=== PATIENT | male | born 1945 | race Two or more races ===

== ENCOUNTER 2016-06-18 23:59 | Inpatient (IN) | payer MEDICARE ==
[~2016-06-18] VITALS: Ht 175.3 cm; Wt 88.0 kg
[2016-06-19 03:30] VITALS: BP 134/69
--- NOTE | 2016-06-19 03:30 | NUR ---
GPS ADMISSION NOTE, RECEIVED PATIENT FROM [facility]. PATIENT ARRIVED ON THIS UNIT AT 0330 VIA WHEEL CHAIR WITH [employer] COORDINATOR VOLUNTEER ESCORT. PATIENT ADMITTED ON A 5150 HOLD FOR DTS. PER HOLD PATIENT WAS AT [facility] WERE HE CONTACTED SECURITY. PATIENT STATED HE FELT HOPELESS AND SUICIDAL AT WHICH POINT HE REQUESTED FOR HELP. THE 5150 WAS REVIEWED AND THE DOCUMENTATION IN THE 5150 HOLD APPEARS TO REFLECT THE PRESENTATION OF THE PATIENT. UPON FACE TO FACE ASSESSMENT PATIENT IS CURRENTLY LYING IN BED AWAKE, HAS COMPLAINT OF BILATERAL KNEE PAIN AT 5 OUT 10 ON THE PAIN SCALE. PATIENT IS TAKING ORAL PAIN MEDICATION FOR THIS PAIN. PATIENT IS DISPLAYING NO S/S OF APPARENT DISTRESS. PATIENT BREATHING IS UNLABORED WITH EQUAL RISE AND FALL OF THE CHEST. PATIENT IS ALERT AND ORIENTATED X 4 ON ROOM AIR. PATIENT ASSISTED WITH TURING AND REPOSITIONING Q2HR AND PRN FOR COMFORT AND CIRCULATION. PATIENT HAS NO NEEDS AT THIS TIME. PATIENT IS NOTED TO BEING WITHDRAWN, DEPRESSED, DISORGANIZED, COOPERATIVE, AND NEEDS REDIRECTION. PATIENT HAS SUICIDE IDEATIONS OF OVERDOSING ON INSULIN AT THIS TIME. PATIENT IS UNDER THE PSYCHIATRIC CARE OF DR. CARDOZA AND THE MEDICAL CARE OF DR LERMA. PATIENT BELONGINGS WERE INVENTORIED AND CHECKED FOR CONTRABAND. ALL CONTRABAND REMOVED AND STORED IN PATIENT HALLWAY LOCKER. PATIENT ADVANCED DIRECTIVES PREFERENCE, IMMUNIZATIONS QUESTIONER, NECESSARY PAPERWORK, AND SKIN ASSESSMENT COMPLETED. PATIENT ORIENTATED TO ROOM, FLOOR, AND STAFF WITH ALL QUESTIONS ANSWERED. PATIENT EDUCATED ON THE USE OF THE CALL BUTT. PATIENT BED SIDE RAILS ARE UP X 2 FOR SAFETY. PATIENT BED IS LOCKED, LOW AND I WILL CONTINUE TO MONITOR THIS PATIENT Q 15 MIN WITH THE HELP OF STAFF TO MAINTAIN SAFETY.
[2016-06-19] MEDS ORDERED: MAG HYDROX/AL HYDROX/SIMETH 30 ML UDC PO PRN (04:30)
[2016-06-19] MEDS ORDERED: TEMAZEPAM 7.5 MG CAPSULE PO PRN (04:30)
[2016-06-19] MEDS ORDERED: MAGNESIUM HYDROXIDE 30 ML UDC PO PRN (04:30)
[2016-06-19] MEDS ORDERED: ACETAMINOPHEN 325 MG TABLET PO PRN (04:30)
[2016-06-19] MEDS ORDERED: LORAZEPAM 0.5 MG TABLET PO PRN (04:30)
[2016-06-19] MEDS ORDERED: CLOP75TA2 PO (04:34)
[2016-06-19] MEDS ORDERED: CARV6.252 PO (04:38)
[2016-06-19] MEDS ORDERED: TRAZ-147 PO (04:49)
[2016-06-19] MEDS ORDERED: HYDR-3895 PO (04:56)
[2016-06-19] MEDS ORDERED: LORA10TA7 PO (04:59)
[2016-06-19] MEDS ORDERED: METH-406 PO (05:01)
[2016-06-19] MEDS ORDERED: VENL75TA4 PO (05:02)
[2016-06-19] MEDS ORDERED: ATOR80TA PO (05:06)
[2016-06-19] MEDS ORDERED: ISOS60TA4 PO (05:09)
[2016-06-19] MEDS ORDERED: RANO500T3 PO (05:11)
[2016-06-19] MEDS ORDERED: GLUC1KIT IJ (05:16)
[2016-06-19] MEDS ORDERED: INSU100V10 SQ (05:19)
[2016-06-19] MEDS ORDERED: NITR0.4T6 SL (05:22)
[2016-06-19] MEDS ORDERED: GUAI600T PO (05:24)
[2016-06-19] MEDS ORDERED: DEXTROSE 50%-WATER 50 ML DISP.SYRIN IV PRN (06:30)
[2016-06-19] MEDS ORDERED: GUAIFENESIN LA 600 MG TABLET.SA PO PRN (07:00)
[2016-06-19] MEDS ORDERED: NITROGLYCERIN 0.4 MG/TAB BOTTLE SL PRN (07:00)
[2016-06-19] MEDS ORDERED: hydrOXYzine PAMOATE 25 MG CAPSULE PO PRN (07:00)
[2016-06-19] MEDS: BLOOD SUGAR DIAGNOSTIC 1 EACH STRIP IN SCH ×4 (07:30→21:12)
[2016-06-19 08:00] VITALS: BP 144/76
[2016-06-19] MEDS: INSULIN DETEMIR 100 UNIT/ML CARTRIDGE SQ SCH ×2 (09:00→17:00)
[2016-06-19] MEDS ORDERED: VENLAFAXINE HCL 75 MG PO SCH (09:00)
[2016-06-19] MEDS: LORATADINE 10 MG TABLET PO SCH (10:13)
[2016-06-19] MEDS: METHOCARBAMOL (750MG) 750 MG TABLET PO SCH ×3 (10:13→17:38)
[2016-06-19] MEDS: CLOPIDOGREL BISULFATE 75 MG TABLET PO SCH (10:13)
[2016-06-19] MEDS: CARVEDILOL 6.25 MG TABLET PO SCH ×2 (10:15→17:38)
[2016-06-19] MEDS: INSULIN REGULAR, HUMAN 100 UNIT/ML 3 ML VIAL SQ PRN ×2 (12:27→21:18)
--- NOTE | 2016-06-19 19:12 | NUR ---
GPS/RN NOTE: PATIENT AWAKE, ALERT, ORIENTED X3, CALM, QUIET, NO ACUTE DISTRESS NOTED.
[2016-06-19 20:03] VITALS: BP 127/61
[2016-06-19] MEDS: TRAZODONE 50 MG TABLET PO PRN (21:12)
--- NOTE | 2016-06-19 21:13 | NUR ---
GPS/RN NOTE: REQUESTING FOR HIS DESYREL 100 MG PO GIVEN FOR SLEEP.
--- NOTE | 2016-06-19 21:18 | NUR ---
GPS/RN NOTE: ACCUCHECK 283 MG//DL, 6 UNITS REGULAR INSULIN SC ADMINISTERED. OFFERED HS SNACKS BUT REFUSED. WILL MONITOR.
[2016-06-20 07:14] LABS: BASOPHILS % (AUTO) 0.7 % (0.0-2.0); EOSINOPHILS # (AUTO) 0.1 /CMM (0.0-0.7); EOSINOPHILS % (AUTO) 1.9 % (0.0-6.0); HEMATOCRIT 36 % (39-51); HEMOGLOBIN 11.9 g/dL (13.5-17.5); LYMPHOCYTES # (AUTO) 1.1 /CMM (0.8-4.8); LYMPHOCYTES % (AUTO) 26.2 % (20.0-44.0); MEAN CORPUSCULAR HEMOGLOBIN 26 PG (26.0-33.0); MEAN CORPUSCULAR HGB CONC 33 g/dl (31.0-36.0); MEAN CORPUSCULAR VOLUME 79 fL (80-96); MONOCYTES # (AUTO) 0.3 /CMM (0.1-1.30); MONOCYTES % (AUTO) 6.2 % (2.0-12.0); NEUTROPHILS # (AUTO) 2.8 /CMM (1.8-8.9); PLATELET COUNT (AUTO) 186 /CMM (150-450); RDW COEFFICIENT OF VARIATION 16.1 (11.5-15.0); RED BLOOD CELL COUNT(AUTO) 4.55 MIL/uL (4.5-6.0); WHITE BLOOD COUNT (AUTO) 4.3 K/uL (4.3-11.0)
[2016-06-20 07:24] LABS: ALBUMIN 2.6 g/dL (3.4-5.0); BILIRUBIN,TOTAL 0.5 mg/dL (0.2-1.0); CALCIUM, SERUM 7.7 mg/dL (8.5-10.1); CREATININE 0.8 mg/dL (0.6-1.3); POTASSIUM 3.5 mmol/L (3.5-5.1); TOTAL PROTEIN, SERUM 5.6 g/dL (6.4-8.2)
[2016-06-20] MEDS: BLOOD SUGAR DIAGNOSTIC 1 EACH STRIP IN SCH ×4 (07:33→21:59)
[2016-06-20] MEDS: INSULIN REGULAR, HUMAN 100 UNIT/ML 3 ML VIAL SQ PRN ×4 (07:34→22:13)
--- NOTE | 2016-06-20 07:34 | NUR ---
[id number]: BLOOD SUGAR IS 200 MG/DL AND GAVE 3 UNITS OF REGULAR INSULIN
[2016-06-20 08:21] VITALS: BP 135/66
[2016-06-20] MEDS: CLOPIDOGREL BISULFATE 75 MG TABLET PO SCH (08:22)
[2016-06-20] MEDS: METHOCARBAMOL (750MG) 750 MG TABLET PO SCH ×3 (08:22→16:37)
[2016-06-20] MEDS: ATORVASTATIN 40 MG TABLET PO SCH (08:23)
[2016-06-20] MEDS: LORATADINE 10 MG TABLET PO SCH (08:23)
[2016-06-20] MEDS: CARVEDILOL 6.25 MG TABLET PO SCH ×2 (08:24→16:38)
[2016-06-20] MEDS: SERTRALINE HCL 50 MG TABLET PO SCH (08:24)
[2016-06-20] MEDS: ISOSORBIDE MONONITRATE (30MG) 30 MG TAB.SR.24H PO SCH (08:24)
[2016-06-20] MEDS: INSULIN DETEMIR 100 UNIT/ML CARTRIDGE SQ SCH ×2 (08:30→16:46)
--- NOTE | 2016-06-20 13:45 | NUR ---
Initial discharge plan: Pt. is a resident at [facility] [address] [place] [address] and per Eunice from admission, pt is able to return upon discharge. LYLY will follow up with Felisa, temporary conservator [phone] and will arrange for safe discharge. Addendum: 06/20/16 at 1541 by LA[place] DESOUZA Disregard this note: The note belongs to another patient.
[2016-06-20 14:47] LABS: IRON, SERUM 32 ug/dl (50-175); TOTAL IRON BINDING CAPACITY 350 ug/dl (250-450)
--- NOTE | 2016-06-20 16:03 | NUR ---
Initial discharge plan; Pt is homeless and needs placement. Pt. does not seem to know whether he wants to be placed in a facility or if he would like to return back to the streets because he wants to go back to [place], [place]. SW will follow up with MD and pt. at a later day to arrange for discharge and discuss plan. SW will help form safe and proper discharge.
[2016-06-20 16:23] VITALS: BP 134/61
[2016-06-20 20:20] VITALS: BP 114/58
[2016-06-20] MEDS: HYDROCODONE/APAP 5/325MG 1 EACH TABLET PO PRN (20:54)
[2016-06-20] MEDS: TRAZODONE 50 MG TABLET PO PRN (21:58)
--- NOTE | 2016-06-21 07:30 | NUR ---
RECEIVED PT. IN AM ALERT AND ORIENTED X3,COOPERATIVE,DEPRESSED.VS STABLE.
[2016-06-21] MEDS: INSULIN REGULAR, HUMAN 100 UNIT/ML 3 ML VIAL SQ PRN ×3 (08:03→17:39)
[2016-06-21] MEDS: INSULIN DETEMIR 100 UNIT/ML CARTRIDGE SQ SCH ×2 (08:07→17:41)
[2016-06-21] MEDS: BLOOD SUGAR DIAGNOSTIC 1 EACH STRIP IN SCH ×4 (08:08→23:02)
[2016-06-21 08:23] VITALS: BP 120/62
[2016-06-21] MEDS: METHOCARBAMOL (750MG) 750 MG TABLET PO SCH ×3 (10:07→17:36)
[2016-06-21] MEDS: LORATADINE 10 MG TABLET PO SCH (10:07)
[2016-06-21] MEDS: CLOPIDOGREL BISULFATE 75 MG TABLET PO SCH (10:07)
[2016-06-21] MEDS: SERTRALINE HCL 50 MG TABLET PO SCH (10:08)
[2016-06-21] MEDS: CARVEDILOL 6.25 MG TABLET PO SCH ×2 (10:08→17:00)
[2016-06-21] MEDS: ATORVASTATIN 40 MG TABLET PO SCH (10:08)
[2016-06-21] MEDS: ISOSORBIDE MONONITRATE (30MG) 30 MG TAB.SR.24H PO SCH (10:09)
[2016-06-21 16:11] VITALS: BP 109/59
--- NOTE | 2016-06-21 18:00 | NUR ---
TAKING MEDS,COMPLIANT.
[2016-06-21 20:41] VITALS: BP 112/60
[2016-06-21] MEDS: TRAZODONE 50 MG TABLET PO PRN (21:14)
[2016-06-21] MEDS: HYDROCODONE/APAP 5/325MG 1 EACH TABLET PO PRN (23:03)
[2016-06-22] MEDS: BLOOD SUGAR DIAGNOSTIC 1 EACH STRIP IN SCH ×4 (07:49→21:19)
[2016-06-22 08:00] VITALS: BP 134/70
[2016-06-22] MEDS: INSULIN REGULAR, HUMAN 100 UNIT/ML 3 ML VIAL SQ PRN ×2 (08:05→12:05)
[2016-06-22] MEDS: METHOCARBAMOL (750MG) 750 MG TABLET PO SCH ×3 (08:19→16:17)
[2016-06-22] MEDS: ATORVASTATIN 40 MG TABLET PO SCH (08:19)
[2016-06-22] MEDS: CLOPIDOGREL BISULFATE 75 MG TABLET PO SCH (08:19)
[2016-06-22] MEDS: CARVEDILOL 6.25 MG TABLET PO SCH ×2 (08:20→16:17)
[2016-06-22] MEDS: LORATADINE 10 MG TABLET PO SCH (08:21)
[2016-06-22] MEDS: ISOSORBIDE MONONITRATE (30MG) 30 MG TAB.SR.24H PO SCH (08:21)
[2016-06-22] MEDS: SERTRALINE HCL 50 MG TABLET PO SCH ×2 (08:22→09:00)
[2016-06-22] MEDS: INSULIN DETEMIR 100 UNIT/ML CARTRIDGE SQ SCH ×2 (08:23→17:00)
--- NOTE | 2016-06-22 09:18 | NUR ---
DR. PACHECO INCREASE THE ZOLOFT TO 75 MG PO, 50 MG OF ZOLOFT GIVEN ALREADY.
[2016-06-22 16:07] VITALS: BP 121/65
--- NOTE | 2016-06-22 17:31 | NUR ---
PT. REFUSED FOR LEVEMIR OF 20 UNITS AT THIS TIME AND SAID HE DOESN'T NEED IT AT THIS TIME.
[2016-06-22 20:00] VITALS: BP 130/59
--- NOTE | 2016-06-22 20:08 | NUR ---
GPS/RN NOTE: AWAKE, ALERT, ORIENTED X3, AMBULATORY. DENIES ANY DISCOMFORT. NO ACUTE DISTRESS NOTED. RESTING IN BED, COMFORTABLE.
[2016-06-22] MEDS: TRAZODONE 50 MG TABLET PO PRN (21:21)
[2016-06-23] MEDS: INSULIN REGULAR, HUMAN 100 UNIT/ML 3 ML VIAL SQ PRN ×4 (00:59→21:40)
[2016-06-23 07:56] VITALS: BP 101/60
[2016-06-23 08:00] VITALS: BP 101/60
[2016-06-23] MEDS: CARVEDILOL 6.25 MG TABLET PO SCH ×2 (08:40→17:57)
[2016-06-23] MEDS: BLOOD SUGAR DIAGNOSTIC 1 EACH STRIP IN SCH ×4 (08:40→21:30)
[2016-06-23] MEDS: ATORVASTATIN 40 MG TABLET PO SCH (08:41)
[2016-06-23] MEDS: SERTRALINE HCL 50 MG TABLET PO SCH (08:41)
[2016-06-23] MEDS: LORATADINE 10 MG TABLET PO SCH (08:41)
[2016-06-23] MEDS: ISOSORBIDE MONONITRATE (30MG) 30 MG TAB.SR.24H PO SCH (08:41)
[2016-06-23] MEDS: METHOCARBAMOL (750MG) 750 MG TABLET PO SCH ×3 (08:41→17:56)
[2016-06-23] MEDS: CLOPIDOGREL BISULFATE 75 MG TABLET PO SCH (08:41)
[2016-06-23] MEDS: INSULIN DETEMIR 100 UNIT/ML CARTRIDGE SQ SCH ×2 (08:43→17:00)
--- NOTE | 2016-06-23 13:46 | NUR ---
Pt was referred and accepted to [facility] [address] [place] [address] per Billy and LATANYA at the facility.
[2016-06-23 16:00] VITALS: BP 117/65
--- NOTE | 2016-06-23 18:50 | NUR ---
GPS/RN ACCUCHECK WITH BS 102 @9864. PT REFUSE DLEVOMIR AND REQUESTED TO CHECK THE BS @1999 AND CONSIDER LEVOMIR ADMINISTRATION AT THAT TIME. WILL ENDORSE TO DINING SERVICE WORKER ACCORDINGLY.
[2016-06-23 20:00] VITALS: BP 125/61
[2016-06-23] MEDS: TRAZODONE 50 MG TABLET PO PRN (21:24)
[2016-06-24 08:00] VITALS: BP 121/62
[2016-06-24] MEDS: ISOSORBIDE MONONITRATE (30MG) 30 MG TAB.SR.24H PO SCH (09:00)
[2016-06-24] MEDS: CARVEDILOL 6.25 MG TABLET PO SCH ×2 (09:00→18:00)
[2016-06-24] MEDS: INSULIN REGULAR, HUMAN 100 UNIT/ML 3 ML VIAL SQ PRN ×4 (09:14→21:44)
[2016-06-24] MEDS: INSULIN DETEMIR 100 UNIT/ML CARTRIDGE SQ SCH ×2 (09:15→18:05)
[2016-06-24] MEDS: METHOCARBAMOL (750MG) 750 MG TABLET PO SCH ×3 (09:16→18:00)
[2016-06-24] MEDS: BLOOD SUGAR DIAGNOSTIC 1 EACH STRIP IN SCH ×4 (09:16→21:35)
[2016-06-24] MEDS: LORATADINE 10 MG TABLET PO SCH (09:17)
[2016-06-24] MEDS: SERTRALINE HCL 50 MG TABLET PO SCH (09:17)
[2016-06-24] MEDS: ATORVASTATIN 40 MG TABLET PO SCH (09:18)
[2016-06-24] MEDS: CLOPIDOGREL BISULFATE 75 MG TABLET PO SCH (09:18)
[2016-06-24 16:16] VITALS: BP 118/64
[2016-06-24 20:00] VITALS: BP 125/64
[2016-06-24] MEDS: TRAZODONE 50 MG TABLET PO PRN (21:34)
[2016-06-25 08:00] VITALS: BP 125/74
[2016-06-25] MEDS: BLOOD SUGAR DIAGNOSTIC 1 EACH STRIP IN SCH ×4 (08:25→22:13)
[2016-06-25] MEDS: INSULIN REGULAR, HUMAN 100 UNIT/ML 3 ML VIAL SQ PRN ×4 (08:26→22:18)
[2016-06-25] MEDS: INSULIN DETEMIR 100 UNIT/ML CARTRIDGE SQ SCH ×2 (08:27→17:07)
[2016-06-25] MEDS: ATORVASTATIN 40 MG TABLET PO SCH (08:29)
[2016-06-25] MEDS: LORATADINE 10 MG TABLET PO SCH (08:29)
[2016-06-25] MEDS: SERTRALINE HCL 50 MG TABLET PO SCH (08:29)
[2016-06-25] MEDS: CARVEDILOL 6.25 MG TABLET PO SCH ×2 (08:30→17:00)
[2016-06-25] MEDS: CLOPIDOGREL BISULFATE 75 MG TABLET PO SCH (08:30)
[2016-06-25] MEDS: METHOCARBAMOL (750MG) 750 MG TABLET PO SCH ×3 (08:30→17:03)
[2016-06-25] MEDS: ISOSORBIDE MONONITRATE (30MG) 30 MG TAB.SR.24H PO SCH (08:31)
[2016-06-25 16:00] VITALS: BP 103/61
[2016-06-25 20:07] VITALS: BP 120/70
[2016-06-25] MEDS: HYDROCODONE/APAP 5/325MG 1 EACH TABLET PO PRN (20:53)
[2016-06-25] MEDS: TRAZODONE 50 MG TABLET PO PRN (21:55)
[2016-06-26 08:00] VITALS: BP 132/63
[2016-06-26] MEDS: BLOOD SUGAR DIAGNOSTIC 1 EACH STRIP IN SCH ×4 (08:02→20:43)
[2016-06-26] MEDS: INSULIN REGULAR, HUMAN 100 UNIT/ML 3 ML VIAL SQ PRN ×4 (08:03→20:45)
--- NOTE | 2016-06-26 08:03 | NUR ---
[id number]: BLOOD SUGAR IS 148 MG/DL AND GAVE 2 UNITS OF REGULAR INSULIN
[2016-06-26] MEDS: ATORVASTATIN 40 MG TABLET PO SCH (08:05)
[2016-06-26] MEDS: LORATADINE 10 MG TABLET PO SCH (08:05)
[2016-06-26] MEDS: CARVEDILOL 6.25 MG TABLET PO SCH ×2 (08:06→16:14)
[2016-06-26] MEDS: METHOCARBAMOL (750MG) 750 MG TABLET PO SCH ×3 (08:07→16:14)
[2016-06-26] MEDS: CLOPIDOGREL BISULFATE 75 MG TABLET PO SCH (08:07)
[2016-06-26] MEDS: ISOSORBIDE MONONITRATE (30MG) 30 MG TAB.SR.24H PO SCH (08:07)
[2016-06-26] MEDS: SERTRALINE HCL 50 MG TABLET PO SCH (08:08)
[2016-06-26] MEDS: INSULIN DETEMIR 100 UNIT/ML CARTRIDGE SQ SCH ×2 (08:09→20:44)
--- NOTE | 2016-06-26 12:12 | NUR ---
[id number]: BLOOD SUGAR IS 252 MG/DL AND GAVE 6 UNITS OF REGULAR INSULIN.
[2016-06-26 16:00] VITALS: BP 118/59
--- NOTE | 2016-06-26 16:48 | NUR ---
[id number]: BLOOD SUGAR IS 158 MG/DL AND GAVE 2 UNITS OF REGULAR INSULIN
--- NOTE | 2016-06-26 19:30 | NUR ---
GPS RN NOTE, RECEIVED PATIENT AWAKE AND IN BED, NO S/S OR COMPLAINTS OF PAIN AT THIS TIME. PATIENT IS DISPLAYING NO S/S OF APPARENT DISTRESS AT THIS TIME. PATIENT BREATHING IS UNLABORED WITH EQUAL RISE AND FALL OF THE CHEST. PATIENT IS ALERT AND ORIENTED X 3 ON ROOM AIR WITH A SPO2 96%. PATIENT COMPLIANT WITH MEDICATIONS, DEPRESSED, COOPERATIVE, CALM, AND NEEDS REORIENTATION. PATIENT DENIES SUICIDE AND HOMICIDAL IDEATIONS AT THIS TIME. PATIENT ASSISTED WITH TURNING AND REPOSITIONING Q2HR AND PRN FOR COMFORT AND CIRCULATION. PATIENT HAS NO NEEDS AT THIS TIME. PATIENT EDUCATED ON THE USE OF THE CALL BUTT. PATIENT BED SIDE RAILS UP X2 FOR SAFETY, BED IS LOCKED AND LOW WILL CONTINUE TO MONITOR AND MAINTAIN SAFETY.
[2016-06-26 19:46] VITALS: BP 133/69
--- NOTE | 2016-06-26 20:43 | NUR ---
GPS RN NOTE, PERFORMED ACCU CHECK ON PATIENT WITH A BLOOD SUGAR RESULT OF 242. GAVE 4 UNITS OF REGULAR INSULIN AND 20 UNITS OF LEVEMIR PER SLIDING SCALE. WILL CONTINUE TO MONITOR THIS PATIENT.
[2016-06-26] MEDS: TRAZODONE 50 MG TABLET PO PRN (21:38)
--- NOTE | 2016-06-26 21:38 | NUR ---
GPS RN NOTE, PATIENT HAS A COMPLAINT OF NOT BEING ABLE TO SLEEP AND WOULD LIKE MEDICATION AT THIS TIME. PATIENT VITAL SIGNS ARE STABLE. GAVE DESYREL 100MG PO HS PRN ORDERED. WILL REASSESS FOR INSOMNIA AND I WILL CONTINUE TO MONITOR THIS PATIENT.
[2016-06-27] MEDS: LORATADINE 10 MG TABLET PO SCH (08:03)
[2016-06-27] MEDS: CARVEDILOL 6.25 MG TABLET PO SCH ×2 (08:04→16:24)
[2016-06-27] MEDS: ISOSORBIDE MONONITRATE (30MG) 30 MG TAB.SR.24H PO SCH (08:04)
[2016-06-27] MEDS: ATORVASTATIN 40 MG TABLET PO SCH (08:05)
[2016-06-27] MEDS: METHOCARBAMOL (750MG) 750 MG TABLET PO SCH ×3 (08:05→16:24)
[2016-06-27] MEDS: CLOPIDOGREL BISULFATE 75 MG TABLET PO SCH (08:05)
[2016-06-27] MEDS: SERTRALINE HCL 50 MG TABLET PO SCH (08:06)
[2016-06-27 08:08] VITALS: BP 152/73
[2016-06-27] MEDS: BLOOD SUGAR DIAGNOSTIC 1 EACH STRIP IN SCH ×4 (08:08→21:51)
[2016-06-27] MEDS: INSULIN DETEMIR 100 UNIT/ML CARTRIDGE SQ SCH ×2 (08:09→20:45)
[2016-06-27] MEDS: INSULIN REGULAR, HUMAN 100 UNIT/ML 3 ML VIAL SQ PRN ×3 (08:10→22:10)
--- NOTE | 2016-06-27 08:10 | NUR ---
[id number]: BLOOD SUGAR IS 192 MG/DL AND GAVE 3 UNITS OF REGULAR INSULIN
--- NOTE | 2016-06-27 12:16 | NUR ---
[id number]: BLOOD SUGAR IS 217 MG/DL AND GAVE 4 UNITS OF REGULAR INSULIN
[2016-06-27 16:00] VITALS: BP 124/65
--- NOTE | 2016-06-27 16:00 | NUR ---
[id number]: BLOOD SUGAR IS 124 MG/DL AND NON INSULIN COVERAGE REQUIRED AT THIS TIME
[2016-06-27 20:13] VITALS: BP 112/62
[2016-06-27] MEDS: HYDROCODONE/APAP 5/325MG 1 EACH TABLET PO PRN (21:10)
[2016-06-27] MEDS: TRAZODONE 50 MG TABLET PO PRN (21:49)
--- NOTE | 2016-06-28 07:29 | NUR ---
[id number]: BLOOD SUGAR IS 89 MG/DL AND NO INSULIN REQUIRED AT THIS TIME
[2016-06-28 08:00] VITALS: BP 121/74
[2016-06-28] MEDS: INSULIN DETEMIR 100 UNIT/ML CARTRIDGE SQ SCH (08:00)
[2016-06-28] MEDS: BLOOD SUGAR DIAGNOSTIC 1 EACH STRIP IN SCH ×2 (08:17→12:18)
[2016-06-28] MEDS: LORATADINE 10 MG TABLET PO SCH (08:18)
[2016-06-28 08:19] VITALS: BP 121/74
[2016-06-28] MEDS: CARVEDILOL 6.25 MG TABLET PO SCH (08:19)
[2016-06-28] MEDS: ISOSORBIDE MONONITRATE (30MG) 30 MG TAB.SR.24H PO SCH (08:19)
[2016-06-28] MEDS: ATORVASTATIN 40 MG TABLET PO SCH (08:19)
[2016-06-28] MEDS: SERTRALINE HCL 50 MG TABLET PO SCH (08:20)
[2016-06-28] MEDS: METHOCARBAMOL (750MG) 750 MG TABLET PO SCH ×2 (08:20→12:29)
[2016-06-28] MEDS: CLOPIDOGREL BISULFATE 75 MG TABLET PO SCH (08:20)
[2016-06-28] MEDS: INSULIN REGULAR, HUMAN 100 UNIT/ML 3 ML VIAL SQ PRN (12:19)
--- NOTE | 2016-06-28 12:19 | NUR ---
[id number]: BLOOD SUGAR IS 338 MG/DL AND GAVE 8 UNITS OF REGULAR INSULIN.
--- NOTE | 2016-06-28 14:45 | NUR ---
[id number]: PT IS 71 YEARS OLD MALE DISCHARGE TO [facility] AT [address] [place]. [address] IN STABLE CONDITION. COMPLIANT WITH MEDICATIONS, COOPERATIVE WITH TREATMENT PLANS. PT DENIES SI/HI AND INSTRUCTED TO GO TO THE CLOSEST ER IF DEVELOPING SI/HI . BEHAVIOR IMPROVED, PSYCHIATRIC TX PLANS MET, MEDICAL TX PLANS DEFERRED FOR CONTINUAL MONITORING. EDUCATED PT ABOUT AFTER CARE PLAN AND COPY PROVIDED. RETURNED PERSONAL BELONGINGS TO PT. MEDICATIONS RECONCILED WITH DR. CARDOZA AND SET UP MACHINIST CHRISTIANO DIXON. REPORT GIVEN TO LAUREEN AT [facility] FOR CONTINUNITY OF CARE. PT SIGNED ALL DISCHARGE PAPERWORK. SKIN ASSESSMENT DONE. PT LEFT VIA AMBULANCE
--- NOTE | 2016-06-28 17:38 | NUR ---
Discharge note: Pt was discharged to [facility] [id number] [place] [address] via [facility]. Pt. was calm and cooperative and agreed with the discharge plan. Pt. denied suicidal/homicidal ideations. Discharge paperwork has been signed and discharge instructions have been provided to the accepting facility.
== END 2016-06-28 14:45 | DRG 885 ==
LOC: GPS 06-19 03:27
PROVIDERS: ADMIT Psychiatry & Neurology Psychiatry; ATTEND Contractor
DX: F33.2 Major depressive disorder, recurrent severe without psychotic features (principal); I11.0 Hypertensive heart disease with heart failure; E11.65 Type 2 diabetes mellitus with hyperglycemia; E44.0 Moderate protein-calorie malnutrition; I50.30 Unspecified diastolic (congestive) heart failure; F29 Unspecified psychosis not due to a substance or known physiological condition; Z73.6 Limitation of activities due to disability; I25.10 Atherosclerotic heart disease of native coronary artery without angina pectoris; D63.8 Anemia in other chronic diseases classified elsewhere; E66.9 Obesity, unspecified; E78.5 Hyperlipidemia, unspecified; Z68.28 Body mass index [BMI] 28.0-28.9, adult; Z59.0 Homelessness
CPT/HCPCS: 36415; 80053-TC; 80061-TC; 82962-TC; 83540-TC; 85025-TC; 87081-TC; J1815